=== PATIENT | female | born 1955 | race Hispanic/Latino ===

== ENCOUNTER 2020-12-29 20:55 | Inpatient (IN) | payer MEDICAID ==
[~2020-12-29] VITALS: Ht 154 cm; Wt 77.1 kg
[2020-12-29 21:38] LABS: MEAN CORPUSCULAR HEMOGLOBIN 26.9 pg (27.0-33.0); MEAN CORPUSCULAR HGB CONC 32.3 g/dL (32.0-36.0); MEAN CORPUSCULAR VOLUME 83.3 fL (79-99); MONOCYTES % (AUTO) 3.6 % (3.0-13.0); NEUTROPHILS % (AUTO) 87.9 % (40.0-77.0); PLATELET COUNT (AUTO) 264 K/uL (130-400); RED BLOOD CELL COUNT(AUTO) 4.68 MIL/uL (4.00-5.50); RED CELL DISTRIBUTION WIDTH 14.1 % (11.0-15.5); WHITE BLOOD COUNT (AUTO) 8.5 K/uL (4.8-10.8)
[2020-12-29 21:55] LABS: INR 0.94 (0.85-1.15); PROTHROMBIN TIME 10.3 SEC (9.6-11.6)
[2020-12-29 21:56] LABS: PARTIAL THROMBOPLASTIN TIME 25.6 SEC (26.3-35.5)
[2020-12-29 22:09] LABS: ALBUMIN 2.8 g/dL (3.5-5.0); BILIRUBIN,TOTAL 0.4 mg/dL (0.2-1.0); CREATININE 1.7 mg/dL (0.5-1.5); POTASSIUM 5.3 mmol/L (3.5-5.1); TOTAL PROTEIN, SERUM 8.1 g/dL (6.0-8.3)
[2020-12-29] MEDS ORDERED: INSULIN HUMULIN R 100 UNIT/ML 3ML ONE (22:09)
[2020-12-29 22:10] LABS: ABG BASE EXCESS -6.7 mmol/L (-2.0-3.0); ABG HCO3 17.1 mmol/L (21.0-28.0); ABG PCO2 30 mmHg (32-45)
[2020-12-29 22:17] LABS: B-TYPE NATRIURETIC PEPTIDE 54 pg/mL (0-100)
[2020-12-30] MEDS ORDERED: INSULIN HUMULIN R 100 UNIT/ML 3ML ONE ×5 (01:02→22:02)
[2020-12-30 02:04] LABS: APPEARANCE,URINE Cloudy (CLEAR); BILIRUBIN,URINE Negative (NEGATIVE); COLOR,URINE Yellow (YELLOW); GLUCOSE, URINE (UA) >=1000 mg/dL (NEGATIVE); KETONES,URINE 15 mg/dL (NEGATIVE); LEUKOCYTE ESTERASE ,URINE Small (NEGATIVE); NITRATE,URINE Negative (NEGATIVE); OCCULT BLOOD,URINE Trace (NEGATIVE); PROTEIN,URINE POS 1+ mg/dL (NEGATIVE); UROBILINOGEN,URINE 0.2 mg/dL (0.2-1.0)
[2020-12-30 02:24] LABS: BACTERIA,URINE Many /HPF (None Seen); RBC,URINE None Seen /HPF (0-1); YEAST,URINE BUDDING Moderate /HPF (None Seen)
[2020-12-30] MEDS ORDERED: LACTATED RINGERS 1000ML 1,000 ML IV SCH (02:45)
[2020-12-30] MEDS ORDERED: DEXTROSE 50%-WATER 50 ML DISP.SYRIN IV PRN (02:45)
[2020-12-30] MEDS ORDERED: GLUCAGON 1MG KIT 1 MG ML IM PRN (02:45)
[2020-12-30] MEDS: INSULIN R NPO SS2 SQ SCH ×3 (06:00→18:00)
[2020-12-30] MEDS: FAMOTIDINE 20MG TAB PO SCH ×2 (09:00→21:00)
[2020-12-30] MEDS ORDERED: FAMOTIDINE 20MG TAB ONE ×2 (10:22→22:02)
[2020-12-30] MEDS: SOLU-MEDROL 125MG VIAL IVP SCH ×2 (11:00→19:00)
[2020-12-30] MEDS: CEFTRIAXONE 1G VIAL IVP SCH (11:00)
[2020-12-30] MEDS: AZITHROMYCIN 500MG+NS 250ML 250 ML IV SCH (11:00)
[2020-12-30] MEDS ORDERED: LABETALOL 20MG SYG IV PRN (11:15)
[2020-12-30] MEDS ORDERED: ALBUTEROL INHALER 90MCG/INH IH PRN (11:15)
[2020-12-30] MEDS ORDERED: CLONIDINE HCL 0.1 MG TABLET PO PRN (11:15)
[2020-12-30] MEDS ORDERED: ONDANSETRON 4MG INJ IVP PRN (11:15)
[2020-12-30] MEDS ORDERED: ACETAMINOPHEN 650 MG SUPPOSITORY RC PRN (11:15)
[2020-12-30] MEDS: ASPIRIN 81MG CHEW TAB PO SCH (11:19)
[2020-12-30] MEDS: ZINC SULFATE 220 CAPSULE PO SCH (11:19)
[2020-12-30] MEDS: ASCORBIC ACID 500 MG TAB PO SCH (11:20)
[2020-12-30 11:28] LABS: ABG BASE EXCESS 0.1 mmol/L (-2.0-3.0); ABG HCO3 23.8 mmol/L (21.0-28.0); ABG OXYGEN SATURATION 93.2 % (95.0-99.0); ABG PCO2 36 mmHg (32-45)
[2020-12-30] MEDS: METOCLOPRAMIDE 5 MG TABLET PO SCH ×3 (11:30→21:00)
[2020-12-30] MEDS: INSULIN HUMULIN R 100 UNIT/ML 3ML SQ SCH ×3 (11:30→21:00)
[2020-12-30] MEDS: ENOXAPARIN SODIUM 40 MG/0.4 ML SYRINGE SQ SCH (12:00)
[2020-12-30 14:12] LABS: CREATININE 1.2 mg/dL (0.5-1.5); POTASSIUM 4.4 mmol/L (3.5-5.1)
[2020-12-30 15:02] LABS: CRP QUANTITATIVE 247.6 mg/L (0.00-9.0)
[2020-12-30] MEDS ORDERED: LACTATED RINGERS 1000ML 1,000 ML IV ONE (18:48)
[2020-12-30] MEDS: PHARMACY COMMUNICATION MISC SCH ×4 (19:45→22:45)
[2020-12-30] MEDS ORDERED: PHARMACY COMMUNICATION MISC SCH ×2 (20:45)
[2020-12-30] MEDS ORDERED: AZITHROMYCIN 500MG+NS 250ML 250 ML IV ONE (21:25)
[2020-12-30] MEDS ORDERED: ENOXAPARIN SODIUM 40 MG/0.4 ML SYRINGE SQ ONE (21:25)
[2020-12-30] MEDS ORDERED: SOLU-MEDROL 125MG VIAL ONE (21:25)
[2020-12-30] MEDS ORDERED: METOCLOPRAMIDE 5 MG TABLET ONE (21:26)
[2020-12-30] MEDS ORDERED: CEFTRIAXONE 1G VIAL ONE (21:26)
[2020-12-31] MEDS: SOLU-MEDROL 125MG VIAL IVP SCH ×4 (03:00→20:12)
[2020-12-31] MEDS: INSULIN R NPO SS2 SQ SCH ×5 (06:00→23:51)
[2020-12-31] MEDS: METOCLOPRAMIDE 5 MG TABLET PO SCH ×4 (07:30→20:16)
[2020-12-31] MEDS: INSULIN HUMULIN R 100 UNIT/ML 3ML SQ SCH ×4 (07:30→20:29)
[2020-12-31] MEDS ORDERED: INSULIN HUMULIN R 100 UNIT/ML 3ML ONE (08:58)
[2020-12-31] MEDS: ENOXAPARIN SODIUM 40 MG/0.4 ML SYRINGE SQ SCH (09:00)
[2020-12-31] MEDS: ZINC SULFATE 220 CAPSULE PO SCH (09:00)
[2020-12-31] MEDS: ASCORBIC ACID 500 MG TAB PO SCH (09:00)
[2020-12-31] MEDS: ASPIRIN 81MG CHEW TAB PO SCH (09:00)
[2020-12-31] MEDS: FAMOTIDINE 20MG TAB PO SCH ×2 (09:00→20:12)
[2020-12-31 09:27] LABS: BASOPHILS % (AUTO) 0.2 % (0.0-5.0); HEMATOCRIT 33.8 % (36-48); LYMPHOCYTES % (AUTO) 9.9 % (21.0-51.0); MEAN CORPUSCULAR HEMOGLOBIN 26.1 pg (27.0-33.0); MEAN CORPUSCULAR HGB CONC 31.1 g/dL (32.0-36.0); MEAN CORPUSCULAR VOLUME 84.1 fL (79-99); MONOCYTES % (AUTO) 0.7 % (3.0-13.0); NEUTROPHILS % (AUTO) 88.4 % (40.0-77.0); PLATELET COUNT (AUTO) 273 K/uL (130-400); RED BLOOD CELL COUNT(AUTO) 4.02 MIL/uL (4.00-5.50); RED CELL DISTRIBUTION WIDTH 14.1 % (11.0-15.5); WHITE BLOOD COUNT (AUTO) 6.2 K/uL (4.8-10.8)
[2020-12-31] MEDS ORDERED: ASCORBIC ACID 500 MG TAB ONE (09:42)
[2020-12-31] MEDS ORDERED: ZINC SULFATE 220 CAPSULE ONE (09:42)
[2020-12-31] MEDS ORDERED: FAMOTIDINE 20MG TAB ONE (09:42)
[2020-12-31] MEDS ORDERED: ASPIRIN 81MG CHEW TAB ONE (09:42)
[2020-12-31] MEDS ORDERED: SOLU-MEDROL 125MG VIAL ONE (09:43)
[2020-12-31 09:48] LABS: ALBUMIN 2.2 g/dL (3.5-5.0); BILIRUBIN,TOTAL 0.3 mg/dL (0.2-1.0); CREATININE 1.3 mg/dL (0.5-1.5); POTASSIUM 5.3 mmol/L (3.5-5.1); TOTAL PROTEIN, SERUM 6.9 g/dL (6.0-8.3)
[2020-12-31 09:56] LABS: CRP QUANTITATIVE 214.5 mg/L (0.00-9.0)
[2020-12-31] MEDS: CEFTRIAXONE 1G VIAL IVP SCH (11:00)
[2020-12-31] MEDS: AZITHROMYCIN 500MG+NS 250ML 250 ML IV SCH (11:00)
[2020-12-31 12:30] VITALS: BP 118/67
[2020-12-31] MEDS: PHARMACY COMMUNICATION MISC SCH (13:30)
[2020-12-31] MEDS ORDERED: COMPOUND IV REFRIGERATED 1 EACH IVSOLN MISC PRN (15:00)
[2020-12-31] MEDS ORDERED: REMDESIVIR (EUA) 520 200 MG in 0.9% NACL 250ML 250 ML IV ONE (15:00)
[2020-12-31 16:00] VITALS: BP 122/68
[2020-12-31 20:00] VITALS: BP 128/68
[2020-12-31] MEDS ORDERED: INSULIN GLARGINE 100 UNITS/ML 10 ML VIAL SQ SCH (21:00)
[2020-12-31] MEDS: ACETAMINOPHEN 325 MG TAB PO PRN (22:06)
[2021-01-01] VITALS: BP 117/61
[2021-01-01] MEDS: SOLU-MEDROL 125MG VIAL IVP SCH ×4 (03:19→21:46)
[2021-01-01 04:17] VITALS: BP 138/69
[2021-01-01 05:33] LABS: BASOPHILS % (AUTO) 0.1 % (0.0-5.0); HEMATOCRIT 31.6 % (36-48); LYMPHOCYTES % (AUTO) 9.8 % (21.0-51.0); MEAN CORPUSCULAR HEMOGLOBIN 26.4 pg (27.0-33.0); MEAN CORPUSCULAR HGB CONC 32.3 g/dL (32.0-36.0); MEAN CORPUSCULAR VOLUME 81.9 fL (79-99); MONOCYTES % (AUTO) 2.4 % (3.0-13.0); NEUTROPHILS % (AUTO) 86.9 % (40.0-77.0); PLATELET COUNT (AUTO) 306 K/uL (130-400); RED BLOOD CELL COUNT(AUTO) 3.86 MIL/uL (4.00-5.50); WHITE BLOOD COUNT (AUTO) 8.2 K/uL (4.8-10.8)
[2021-01-01] MEDS: INSULIN R NPO SS2 SQ SCH ×2 (05:50→13:04)
[2021-01-01 05:54] LABS: ALBUMIN 2.1 g/dL (3.5-5.0); BILIRUBIN,TOTAL 0.2 mg/dL (0.2-1.0); CREATININE 1.1 mg/dL (0.5-1.5); CRP QUANTITATIVE 147.6 mg/L (0.00-9.0); POTASSIUM 4.3 mmol/L (3.5-5.1); TOTAL PROTEIN, SERUM 6.4 g/dL (6.0-8.3)
[2021-01-01] MEDS: REMDESIVIR LABS MISC SCH (06:00)
[2021-01-01] MEDS: INSULIN HUMULIN R 100 UNIT/ML 3ML SQ SCH ×3 (07:30→21:48)
[2021-01-01 08:00] VITALS: BP 111/69
[2021-01-01] MEDS: METOCLOPRAMIDE 5 MG TABLET PO SCH ×4 (08:41→21:44)
[2021-01-01] MEDS: ASPIRIN 81MG CHEW TAB PO SCH (10:30)
[2021-01-01] MEDS: ZINC SULFATE 220 CAPSULE PO SCH (10:31)
[2021-01-01] MEDS: FAMOTIDINE 20MG TAB PO SCH ×2 (10:31→21:44)
[2021-01-01] MEDS: ASCORBIC ACID 500 MG TAB PO SCH (10:32)
[2021-01-01] MEDS: ENOXAPARIN SODIUM 40 MG/0.4 ML SYRINGE SQ SCH (10:35)
[2021-01-01] MEDS ORDERED: DEXAMETHASONE SOD PHOSPHATE 4 MG/ML 1ML VIAL ONE (10:39)
[2021-01-01] MEDS ORDERED: SOLU-MEDROL 40MG VIAL ONE ×2 (10:43→15:38)
[2021-01-01] MEDS: AZITHROMYCIN 500MG+NS 250ML 250 ML IV SCH ×2 (11:28→11:47)
[2021-01-01 12:00] VITALS: BP 124/77
[2021-01-01] MEDS: ZOSYN 3.375GM+NS 50ML 50 ML IV SCH ×2 (13:00→21:44)
[2021-01-01] MEDS: REMDESIVIR (EUA) 520 100 MG in 0.9% NACL 250ML 250 ML IV SCH (15:26)
[2021-01-01 18:00] VITALS: BP 116/68
[2021-01-01 20:00] VITALS: BP 137/77
[2021-01-01] MEDS: PHARMACY COMMUNICATION MISC SCH ×2 (21:30→23:31)
[2021-01-02] VITALS (7 sets, daily range): BP systolic 104–144; BP diastolic 56–93
[2021-01-02] MEDS: PHARMACY COMMUNICATION MISC SCH ×11 (01:08→12:27)
[2021-01-02] MEDS: ZOSYN 3.375GM+NS 50ML 50 ML IV SCH ×3 (05:54→21:33)
[2021-01-02] MEDS: SOLU-MEDROL 125MG VIAL IVP SCH ×4 (05:54→23:02)
[2021-01-02] MEDS: INSULIN R NPO SS2 SQ SCH ×3 (05:59→12:00)
[2021-01-02] MEDS: REMDESIVIR LABS MISC SCH (06:00)
[2021-01-02] MEDS: METOCLOPRAMIDE 5 MG TABLET PO SCH ×4 (07:00→21:33)
[2021-01-02 07:02] LABS: BASOPHILS % (AUTO) 0.1 % (0.0-5.0); HEMATOCRIT 33.7 % (36-48); LYMPHOCYTES % (AUTO) 5.3 % (21.0-51.0); MEAN CORPUSCULAR HEMOGLOBIN 26.1 pg (27.0-33.0); MEAN CORPUSCULAR VOLUME 81.4 fL (79-99); MONOCYTES % (AUTO) 2.2 % (3.0-13.0); NEUTROPHILS % (AUTO) 91.4 % (40.0-77.0); PLATELET COUNT (AUTO) 364 K/uL (130-400); RED BLOOD CELL COUNT(AUTO) 4.14 MIL/uL (4.00-5.50); RED CELL DISTRIBUTION WIDTH 14.1 % (11.0-15.5); WHITE BLOOD COUNT (AUTO) 13.4 K/uL (4.8-10.8)
[2021-01-02 07:13] LABS: ALBUMIN 2.4 g/dL (3.5-5.0); BILIRUBIN,TOTAL 0.2 mg/dL (0.2-1.0); CREATININE 1.2 mg/dL (0.5-1.5); CRP QUANTITATIVE 79.5 mg/L (0.00-9.0); TOTAL PROTEIN, SERUM 6.9 g/dL (6.0-8.3)
[2021-01-02] MEDS: ASCORBIC ACID 500 MG TAB PO SCH (09:00)
[2021-01-02] MEDS: ASPIRIN 81MG CHEW TAB PO SCH (09:00)
[2021-01-02] MEDS: FAMOTIDINE 20MG TAB PO SCH ×2 (09:00→21:33)
[2021-01-02] MEDS: ZINC SULFATE 220 CAPSULE PO SCH (09:00)
[2021-01-02] MEDS: ENOXAPARIN SODIUM 40 MG/0.4 ML SYRINGE SQ SCH (09:00)
[2021-01-02] MEDS ORDERED: METO5TAB2 PO (09:32)
[2021-01-02] MEDS ORDERED: PRAV20TA4 PO (09:32)
[2021-01-02] MEDS ORDERED: FAMO20TA8 PO (09:32)
[2021-01-02] MEDS ORDERED: LISI20TA24 PO (09:32)
[2021-01-02] MEDS ORDERED: TICA90TA PO (09:32)
[2021-01-02] MEDS ORDERED: METF-444 PO (09:32)
[2021-01-02] MEDS ORDERED: ALBU0.63 NEB (09:32)
[2021-01-02] MEDS ORDERED: INSU100I3 SQ (09:32)
[2021-01-02] MEDS ORDERED: GLIP10TA9 PO (09:32)
[2021-01-02] MEDS: INSULIN HUMULIN R 100 UNIT/ML 3ML SQ SCH ×4 (11:32→22:05)
[2021-01-02] MEDS: AZITHROMYCIN 500MG+NS 250ML 250 ML IV SCH (11:33)
[2021-01-02] MEDS: REMDESIVIR (EUA) 520 100 MG in 0.9% NACL 250ML 250 ML IV SCH (15:00)
[2021-01-02] MEDS ORDERED: PROPOFOL 1000 MG/100 ML 100 ML IV ONE (15:37)
[2021-01-02] MEDS ORDERED: INSULIN HUMULIN R 100 UNIT/ML 3ML IV SCH (23:00)
[2021-01-03] VITALS: BP 159/89
[2021-01-03] MEDS ORDERED: LORAZEPAM 2 MG/ML 1 ML VIAL IVP ONE
[2021-01-03] MEDS ORDERED: LORAZEPAM 2 MG/ML 1 ML VIAL ONE (00:14)
[2021-01-03] MEDS: SOLU-MEDROL 125MG VIAL IVP SCH (03:48)
[2021-01-03 04:00] VITALS: BP 135/85
[2021-01-03] MEDS: REMDESIVIR LABS MISC SCH (06:00)
[2021-01-03] MEDS: METOCLOPRAMIDE 5 MG TABLET PO SCH ×4 (06:32→21:42)
[2021-01-03] MEDS: ZOSYN 3.375GM+NS 50ML 50 ML IV SCH (06:32)
[2021-01-03] MEDS: INSULIN HUMULIN R 100 UNIT/ML 3ML SQ SCH ×4 (06:35→21:45)
[2021-01-03] MEDS: ASPIRIN 81MG CHEW TAB PO SCH (08:36)
[2021-01-03] MEDS: FAMOTIDINE 20MG TAB PO SCH ×2 (08:37→21:42)
[2021-01-03] MEDS: ENOXAPARIN SODIUM 40 MG/0.4 ML SYRINGE SQ SCH (08:37)
[2021-01-03] MEDS: OLANZAPINE 10MG/ML 1ML VIAL IM PRN (08:37)
[2021-01-03] MEDS: DEXAMETHASONE 4 MG TAB PO SCH (08:37)
[2021-01-03] MEDS: ZINC SULFATE 220 CAPSULE PO SCH (08:37)
[2021-01-03] MEDS: ASCORBIC ACID 500 MG TAB PO SCH (08:37)
[2021-01-03 08:54] VITALS: BP 155/107
[2021-01-03] MEDS: PHARMACY COMMUNICATION MISC SCH ×14 (09:45→23:45)
[2021-01-03] MEDS: AZITHROMYCIN 500MG+NS 250ML 250 ML IV SCH (11:00)
[2021-01-03 12:07] VITALS: BP 163/96
[2021-01-03 13:14] LABS: BASOPHILS % (AUTO) 0.2 % (0.0-5.0); HEMATOCRIT 39.4 % (36-48); LYMPHOCYTES % (AUTO) 5.2 % (21.0-51.0); MEAN CORPUSCULAR HEMOGLOBIN 26.4 pg (27.0-33.0); MEAN CORPUSCULAR HGB CONC 32.2 g/dL (32.0-36.0); MEAN CORPUSCULAR VOLUME 81.9 fL (79-99); MONOCYTES % (AUTO) 3.9 % (3.0-13.0); NEUTROPHILS % (AUTO) 88.5 % (40.0-77.0); PLATELET COUNT (AUTO) 478 K/uL (130-400); RED BLOOD CELL COUNT(AUTO) 4.81 MIL/uL (4.00-5.50); RED CELL DISTRIBUTION WIDTH 14.1 % (11.0-15.5)
[2021-01-03 13:22] LABS: CREATININE 1.1 mg/dL (0.5-1.5); POTASSIUM 4.2 mmol/L (3.5-5.1)
[2021-01-03 13:30] LABS: ALBUMIN 2.9 g/dL (3.5-5.0); BILIRUBIN,DIRECT 0.1 mg/dL (0.0-0.3); BILIRUBIN,TOTAL 0.4 mg/dL (0.2-1.0); TOTAL PROTEIN, SERUM 7.3 g/dL (6.0-8.3)
[2021-01-03] MEDS: REMDESIVIR (EUA) 520 100 MG in 0.9% NACL 250ML 250 ML IV SCH (15:00)
[2021-01-03 16:30] VITALS: BP 153/101
[2021-01-03 20:00] VITALS: BP 128/80
[2021-01-03] MEDS: INSULIN GLARGINE 100 UNITS/ML 10 ML VIAL SQ SCH (21:44)
[2021-01-03 21:57] LABS: BASOPHILS % (AUTO) 0.2 % (0.0-5.0); HEMATOCRIT 38.8 % (36-48); LYMPHOCYTES % (AUTO) 4.8 % (21.0-51.0); MEAN CORPUSCULAR HEMOGLOBIN 26.3 pg (27.0-33.0); MEAN CORPUSCULAR VOLUME 82.4 fL (79-99); MONOCYTES % (AUTO) 5.6 % (3.0-13.0); NEUTROPHILS % (AUTO) 87.5 % (40.0-77.0); PLATELET COUNT (AUTO) 488 K/uL (130-400); RED BLOOD CELL COUNT(AUTO) 4.71 MIL/uL (4.00-5.50); RED CELL DISTRIBUTION WIDTH 14.2 % (11.0-15.5); WHITE BLOOD COUNT (AUTO) 12.6 K/uL (4.8-10.8)
[2021-01-03 22:08] LABS: ABG BASE EXCESS -2.2 mmol/L (-2.0-3.0); ABG HCO3 17.9 mmol/L (21.0-28.0); ABG OXYGEN SATURATION 95.8 % (95.0-99.0); ABG PCO2 22 mmHg (32-45)
[2021-01-03 22:12] LABS: CARBON DIOXIDE 23 mmol/L (21-32); CHLORIDE 105 mmol/L (101-111); CREATININE 1.3 mg/dL (0.5-1.5); GLOMERULAR FILTR. RATE CALC 44 mL/min (>60); GLUCOSE,RANDOM 310 mg/dL (70-105); SODIUM SERUM 144 mmol/L (136-145); UREA NITROGEN, BLOOD 33 mg/dL (7-18)
[2021-01-03 22:16] LABS: AMMONIA < 10 umol/L (11-32)
[2021-01-04] VITALS: BP 120/76
[2021-01-04] MEDS ORDERED: 0.9% NACL 500ML IV.SOLN 250 ML IV SCH
[2021-01-04] MEDS ORDERED: 0.9% NACL 250ML 250 ML IV ONE (00:01)
[2021-01-04] MEDS: ZOSYN 3.375GM+NS 50ML 50 ML IV SCH ×3 (01:45→17:31)
[2021-01-04] MEDS ORDERED: ZOSYN 3.375GM+NS 50ML 50 ML IV ONE (01:50)
[2021-01-04 04:00] VITALS: BP 144/78
[2021-01-04] MEDS: REMDESIVIR LABS MISC SCH (06:00)
[2021-01-04 06:26] LABS: BASOPHILS % (AUTO) 0.3 % (0.0-5.0); HEMATOCRIT 40.8 % (36-48); LYMPHOCYTES % (AUTO) 6.6 % (21.0-51.0); MEAN CORPUSCULAR HEMOGLOBIN 26.1 pg (27.0-33.0); MEAN CORPUSCULAR HGB CONC 31.9 g/dL (32.0-36.0); MEAN CORPUSCULAR VOLUME 81.9 fL (79-99); MONOCYTES % (AUTO) 3.4 % (3.0-13.0); NEUTROPHILS % (AUTO) 88.1 % (40.0-77.0); PLATELET COUNT (AUTO) 493 K/uL (130-400); RED BLOOD CELL COUNT(AUTO) 4.98 MIL/uL (4.00-5.50); RED CELL DISTRIBUTION WIDTH 14.2 % (11.0-15.5); WHITE BLOOD COUNT (AUTO) 14.7 K/uL (4.8-10.8)
[2021-01-04] MEDS: INSULIN HUMULIN R 100 UNIT/ML 3ML SQ SCH ×4 (06:27→21:16)
[2021-01-04] MEDS: METOCLOPRAMIDE 5 MG TABLET PO SCH ×4 (06:32→21:14)
[2021-01-04 06:50] LABS: ALBUMIN 2.8 g/dL (3.5-5.0); BILIRUBIN,DIRECT 0.1 mg/dL (0.0-0.3); BILIRUBIN,TOTAL 0.4 mg/dL (0.2-1.0); CREATININE 1.2 mg/dL (0.5-1.5); POTASSIUM 3.2 mmol/L (3.5-5.1); TOTAL PROTEIN, SERUM 7.1 g/dL (6.0-8.3)
[2021-01-04] MEDS: FAMOTIDINE 20MG TAB PO SCH ×2 (07:46→21:14)
[2021-01-04] MEDS: ENOXAPARIN SODIUM 40 MG/0.4 ML SYRINGE SQ SCH (07:46)
[2021-01-04] MEDS: DEXAMETHASONE 4 MG TAB PO SCH (07:46)
[2021-01-04] MEDS: ZINC SULFATE 220 CAPSULE PO SCH (07:46)
[2021-01-04] MEDS: ASPIRIN 81MG CHEW TAB PO SCH (07:47)
[2021-01-04] MEDS: ASCORBIC ACID 500 MG TAB PO SCH (07:47)
[2021-01-04 09:00] VITALS: BP 135/84
[2021-01-04 11:54] VITALS: BP 107/66
[2021-01-04] MEDS: REMDESIVIR (EUA) 520 100 MG in 0.9% NACL 250ML 250 ML IV SCH (14:55)
[2021-01-04 15:48] VITALS: BP 133/93
[2021-01-04 20:00] VITALS: BP 145/77
[2021-01-04] MEDS: INSULIN GLARGINE 100 UNITS/ML 10 ML VIAL SQ SCH (21:17)
[2021-01-05] VITALS: BP 103/54
[2021-01-05] MEDS: ZOSYN 3.375GM+NS 50ML 50 ML IV SCH ×3 (03:15→17:02)
[2021-01-05 04:00] VITALS: BP 148/93
[2021-01-05 05:35] LABS: BASOPHILS % (AUTO) 0.3 % (0.0-5.0); EOSINOPHILS % (AUTO) 0.1 % (0.0-8.0); HEMATOCRIT 39.7 % (36-48); LYMPHOCYTES % (AUTO) 8.3 % (21.0-51.0); MEAN CORPUSCULAR HEMOGLOBIN 26.3 pg (27.0-33.0); MEAN CORPUSCULAR HGB CONC 31.7 g/dL (32.0-36.0); MEAN CORPUSCULAR VOLUME 82.7 fL (79-99); NEUTROPHILS % (AUTO) 85.3 % (40.0-77.0); PLATELET COUNT (AUTO) 417 K/uL (130-400); RED CELL DISTRIBUTION WIDTH 14.4 % (11.0-15.5); WHITE BLOOD COUNT (AUTO) 9.4 K/uL (4.8-10.8)
[2021-01-05 05:45] LABS: CREATININE 1.2 mg/dL (0.5-1.5)
[2021-01-05] MEDS: REMDESIVIR LABS MISC SCH (06:00)
[2021-01-05 06:17] LABS: POTASSIUM 2.9 mmol/L (3.5-5.1)
[2021-01-05] MEDS: INSULIN HUMULIN R 100 UNIT/ML 3ML SQ SCH ×4 (06:37→20:58)
[2021-01-05] MEDS: METOCLOPRAMIDE 5 MG TABLET PO SCH ×4 (07:06→20:57)
[2021-01-05] MEDS ORDERED: POTASSIUM BICARB/CIT AC 25 MEQ TABLET.EFF PO ONE (07:30)
[2021-01-05] MEDS: ASCORBIC ACID 500 MG TAB PO SCH (07:39)
[2021-01-05] MEDS: ENOXAPARIN SODIUM 40 MG/0.4 ML SYRINGE SQ SCH (07:39)
[2021-01-05] MEDS: FAMOTIDINE 20MG TAB PO SCH ×2 (07:40→20:57)
[2021-01-05] MEDS: ASPIRIN 81MG CHEW TAB PO SCH (07:40)
[2021-01-05] MEDS: ZINC SULFATE 220 CAPSULE PO SCH (07:40)
[2021-01-05] MEDS: DEXAMETHASONE 4 MG TAB PO SCH (07:40)
[2021-01-05 08:00] VITALS: BP 111/75
[2021-01-05] MEDS: OLANZAPINE 10MG/ML 1ML VIAL IM PRN (10:07)
[2021-01-05 12:11] VITALS: BP 148/85
[2021-01-05] MEDS ORDERED: LORAZEPAM 2 MG/ML 1 ML VIAL IVP ONE (13:30)
[2021-01-05] MEDS ORDERED: KCL 20 MEQ ERTAB PO SCH (14:00)
[2021-01-05 14:30] LABS: ALBUMIN 2.5 g/dL (3.5-5.0); BILIRUBIN,DIRECT 0.1 mg/dL (0.0-0.3); BILIRUBIN,TOTAL 0.4 mg/dL (0.2-1.0); TOTAL PROTEIN, SERUM 6.7 g/dL (6.0-8.3)
[2021-01-05] MEDS ORDERED: LORAZEPAM 2 MG/ML 1 ML VIAL ONE (16:28)
[2021-01-05 16:30] VITALS: BP 146/69
[2021-01-05 20:08] VITALS: BP 142/86
[2021-01-05] MEDS: INSULIN GLARGINE 100 UNITS/ML 10 ML VIAL SQ SCH (20:59)
[2021-01-06] VITALS (7 sets, daily range): BP systolic 105–147; BP diastolic 52–96
[2021-01-06] MEDS: ZOSYN 3.375GM+NS 50ML 50 ML IV SCH ×3 (01:01→17:54)
[2021-01-06] MEDS: INSULIN HUMULIN R 100 UNIT/ML 3ML SQ SCH ×4 (05:32→20:13)
[2021-01-06] MEDS: METOCLOPRAMIDE 5 MG TABLET PO SCH ×4 (06:27→20:10)
[2021-01-06] MEDS: ZINC SULFATE 220 CAPSULE PO SCH (09:34)
[2021-01-06] MEDS: ASPIRIN 81MG CHEW TAB PO SCH (09:34)
[2021-01-06] MEDS: DEXAMETHASONE 4 MG TAB PO SCH (09:34)
[2021-01-06] MEDS: ASCORBIC ACID 500 MG TAB PO SCH (09:34)
[2021-01-06] MEDS: FAMOTIDINE 20MG TAB PO SCH ×2 (09:37→20:10)
[2021-01-06] MEDS: ENOXAPARIN SODIUM 40 MG/0.4 ML SYRINGE SQ SCH (09:38)
[2021-01-06] MEDS: INSULIN GLARGINE 100 UNITS/ML 10 ML VIAL SQ SCH (20:14)
[2021-01-07] MEDS: ZOSYN 3.375GM+NS 50ML 50 ML IV SCH ×3 (02:34→17:12)
[2021-01-07 04:21] VITALS: BP 150/80
[2021-01-07] MEDS: METOCLOPRAMIDE 5 MG TABLET PO SCH ×4 (06:25→20:55)
[2021-01-07] MEDS: INSULIN HUMULIN R 100 UNIT/ML 3ML SQ SCH ×4 (06:26→20:16)
[2021-01-07 07:40] VITALS: BP 149/91
[2021-01-07] MEDS: FAMOTIDINE 20MG TAB PO SCH ×2 (08:39→20:55)
[2021-01-07] MEDS: DEXAMETHASONE 4 MG TAB PO SCH (08:39)
[2021-01-07] MEDS: ZINC SULFATE 220 CAPSULE PO SCH (08:39)
[2021-01-07] MEDS: ASCORBIC ACID 500 MG TAB PO SCH (08:40)
[2021-01-07] MEDS: ASPIRIN 81MG CHEW TAB PO SCH (08:40)
[2021-01-07] MEDS: ENOXAPARIN SODIUM 40 MG/0.4 ML SYRINGE SQ SCH (08:41)
[2021-01-07 12:17] VITALS: BP 122/72
[2021-01-07 16:17] VITALS: BP 104/85
[2021-01-07] MEDS: INSULIN GLARGINE 100 UNITS/ML 10 ML VIAL SQ SCH (20:15)
[2021-01-07 20:34] VITALS: BP 99/45
[2021-01-07 23:53] VITALS: BP 129/73
[2021-01-08] MEDS: ZOSYN 3.375GM+NS 50ML 50 ML IV SCH ×3 (01:08→18:04)
[2021-01-08 04:02] VITALS: BP 126/80
[2021-01-08] MEDS: METOCLOPRAMIDE 5 MG TABLET PO SCH ×4 (06:06→20:11)
[2021-01-08] MEDS: INSULIN HUMULIN R 100 UNIT/ML 3ML SQ SCH ×4 (06:26→20:15)
[2021-01-08 08:00] VITALS: BP 141/76
[2021-01-08] MEDS: DEXAMETHASONE 4 MG TAB PO SCH (09:44)
[2021-01-08] MEDS: ENOXAPARIN SODIUM 40 MG/0.4 ML SYRINGE SQ SCH (09:44)
[2021-01-08] MEDS: FAMOTIDINE 20MG TAB PO SCH ×2 (09:45→20:11)
[2021-01-08] MEDS: ASCORBIC ACID 500 MG TAB PO SCH (09:45)
[2021-01-08] MEDS: ASPIRIN 81MG CHEW TAB PO SCH (09:45)
[2021-01-08] MEDS: ZINC SULFATE 220 CAPSULE PO SCH (09:45)
[2021-01-08 11:59] VITALS: BP 131/79
[2021-01-08] MEDS: METFORMIN HCL 500 MG TABLET PO SCH (16:02)
[2021-01-08 16:04] VITALS: BP 148/97
[2021-01-08 20:12] VITALS: BP 122/73
[2021-01-08] MEDS: INSULIN GLARGINE 100 UNITS/ML 10 ML VIAL SQ SCH (20:13)
[2021-01-09] VITALS (7 sets, daily range): BP systolic 69–132; BP diastolic 65–83
[2021-01-09] MEDS: ZOSYN 3.375GM+NS 50ML 50 ML IV SCH ×3 (01:41→17:49)
[2021-01-09] MEDS: INSULIN HUMULIN R 100 UNIT/ML 3ML SQ SCH ×4 (06:07→21:55)
[2021-01-09] MEDS: METOCLOPRAMIDE 5 MG TABLET PO SCH ×4 (06:38→21:23)
[2021-01-09] MEDS: GLIPIZIDE 5 MG TABLET PO SCH (06:38)
[2021-01-09] MEDS: ZINC SULFATE 220 CAPSULE PO SCH (08:42)
[2021-01-09] MEDS: ASCORBIC ACID 500 MG TAB PO SCH (08:42)
[2021-01-09] MEDS: ASPIRIN 81MG CHEW TAB PO SCH (08:42)
[2021-01-09] MEDS: METFORMIN HCL 500 MG TABLET PO SCH ×2 (08:42→17:49)
[2021-01-09] MEDS: FAMOTIDINE 20MG TAB PO SCH ×2 (08:42→21:23)
[2021-01-09] MEDS: DEXAMETHASONE 4 MG TAB PO SCH (08:43)
[2021-01-09] MEDS: ENOXAPARIN SODIUM 40 MG/0.4 ML SYRINGE SQ SCH (08:43)
[2021-01-09] MEDS: INSULIN GLARGINE 100 UNITS/ML 10 ML VIAL SQ SCH (21:53)
[2021-01-10] MEDS: ZOSYN 3.375GM+NS 50ML 50 ML IV SCH ×3 (01:49→17:15)
[2021-01-10 03:52] VITALS: BP 137/80
[2021-01-10] MEDS: INSULIN HUMULIN R 100 UNIT/ML 3ML SQ SCH ×4 (06:11→21:34)
[2021-01-10] MEDS: METOCLOPRAMIDE 5 MG TABLET PO SCH ×4 (06:14→21:13)
[2021-01-10] MEDS: METFORMIN HCL 500 MG TABLET PO SCH ×2 (08:00→17:15)
[2021-01-10] MEDS: GLIPIZIDE 5 MG TABLET PO SCH (08:00)
[2021-01-10 08:21] VITALS: BP 120/67
[2021-01-10] MEDS: ZINC SULFATE 220 CAPSULE PO SCH (09:00)
[2021-01-10] MEDS: ASCORBIC ACID 500 MG TAB PO SCH (09:00)
[2021-01-10] MEDS: ASPIRIN 81MG CHEW TAB PO SCH (09:00)
[2021-01-10] MEDS: DEXAMETHASONE 4 MG TAB PO SCH (09:00)
[2021-01-10] MEDS: ENOXAPARIN SODIUM 40 MG/0.4 ML SYRINGE SQ SCH (09:00)
[2021-01-10] MEDS: FAMOTIDINE 20MG TAB PO SCH ×2 (09:00→21:13)
[2021-01-10 11:42] VITALS: BP 112/66
[2021-01-10] MEDS: ACETAMINOPHEN 325 MG TAB PO PRN (12:53)
[2021-01-10 16:53] VITALS: BP 113/69
[2021-01-10 20:00] VITALS: BP 117/72
[2021-01-10] MEDS: INSULIN GLARGINE 100 UNITS/ML 10 ML VIAL SQ SCH (21:34)
[2021-01-11] VITALS (7 sets, daily range): BP systolic 108–136; BP diastolic 60–82
[2021-01-11] MEDS: ZOSYN 3.375GM+NS 50ML 50 ML IV SCH ×3 (02:17→18:13)
[2021-01-11] MEDS: METOCLOPRAMIDE 5 MG TABLET PO SCH ×4 (05:53→21:02)
[2021-01-11] MEDS: INSULIN HUMULIN R 100 UNIT/ML 3ML SQ SCH ×4 (05:53→21:42)
[2021-01-11] MEDS: METFORMIN HCL 500 MG TABLET PO SCH ×2 (09:41→16:47)
[2021-01-11] MEDS: GLIPIZIDE 5 MG TABLET PO SCH (09:41)
[2021-01-11] MEDS: ZINC SULFATE 220 CAPSULE PO SCH (09:41)
[2021-01-11] MEDS: DEXAMETHASONE 4 MG TAB PO SCH (09:42)
[2021-01-11] MEDS: ASCORBIC ACID 500 MG TAB PO SCH (09:43)
[2021-01-11] MEDS: FAMOTIDINE 20MG TAB PO SCH ×2 (09:43→21:02)
[2021-01-11] MEDS: ASPIRIN 81MG CHEW TAB PO SCH (09:43)
[2021-01-11] MEDS: ENOXAPARIN SODIUM 40 MG/0.4 ML SYRINGE SQ SCH (09:44)
[2021-01-11] MEDS: INSULIN GLARGINE 100 UNITS/ML 10 ML VIAL SQ SCH (21:42)
[2021-01-12] MEDS: ZOSYN 3.375GM+NS 50ML 50 ML IV SCH ×3 (01:17→17:45)
[2021-01-12 03:24] VITALS: BP 108/66
[2021-01-12] MEDS: INSULIN HUMULIN R 100 UNIT/ML 3ML SQ SCH ×3 (05:57→16:10)
[2021-01-12] MEDS: METOCLOPRAMIDE 5 MG TABLET PO SCH ×3 (06:41→16:30)
[2021-01-12] MEDS: METFORMIN HCL 500 MG TABLET PO SCH (07:29)
[2021-01-12] MEDS: GLIPIZIDE 5 MG TABLET PO SCH (07:29)
[2021-01-12 08:08] VITALS: BP 123/74
[2021-01-12] MEDS: FAMOTIDINE 20MG TAB PO SCH (10:49)
[2021-01-12] MEDS: ASPIRIN 81MG CHEW TAB PO SCH (10:49)
[2021-01-12] MEDS: ZINC SULFATE 220 CAPSULE PO SCH (10:49)
[2021-01-12] MEDS: DEXAMETHASONE 4 MG TAB PO SCH (10:50)
[2021-01-12] MEDS: ASCORBIC ACID 500 MG TAB PO SCH (10:51)
[2021-01-12] MEDS: ENOXAPARIN SODIUM 40 MG/0.4 ML SYRINGE SQ SCH (10:51)
[2021-01-12 12:05] VITALS: BP 116/72
[2021-01-12 16:40] VITALS: BP 131/66
[2021-01-13] MEDS ORDERED: GLIPIZIDE 5 MG TABLET PO SCH (07:30)
== END 2021-01-12 18:01 | DRG 137 ==
LOC: EDH 20:55 → EDHIP 20:56 → 2DH 12-31 14:30
PROVIDERS: ADMIT Internal Medicine Critical Care Medicine; ATTEND Internal Medicine Critical Care Medicine
PROC: XW033E5 Introduction of Remdesivir Anti-infective into Peripheral Vein, Percutaneous Approach, New Technology Group 5 (ICD-10-PCS; principal; 2020-12-31)
DX: U07.1 COVID-19 (principal); J96.01 Acute respiratory failure with hypoxia; E11.65 Type 2 diabetes mellitus with hyperglycemia; N39.0 Urinary tract infection, site not specified; E66.01 Morbid (severe) obesity due to excess calories; J12.82 Pneumonia due to coronavirus disease 2019; E86.0 Dehydration; I10 Essential (primary) hypertension; B96.20 Unspecified Escherichia coli [E. coli] as the cause of diseases classified elsewhere; Z16.12 Extended spectrum beta lactamase (ESBL) resistance; Z66 Do not resuscitate; G93.40 Encephalopathy, unspecified; Z68.31 Body mass index [BMI] 31.0-31.9, adult; Z79.4 Long term (current) use of insulin; Z79.01 Long term (current) use of anticoagulants; Z78.1 Physical restraint status; Z74.01 Bed confinement status; I69.320 Aphasia following cerebral infarction; Z90.710 Acquired absence of both cervix and uterus
CPT/HCPCS: 36415; 36600; 70450; 71045; 80048; 80053; 80076; 81001; 82010; 82140; 82248; 82728; 82803; 82947; 82948; 83605; 83615; 83880; 83930; 84132; 84145; 84484; 85025; 85378; 85610; 85730; 86140; 87040; 87077; 87088; 87186; 87426; 92526; 92610; 93005; 97039; 99291; G0378; J0456; J0696; J1100; J1650; J1815; J2060; J2543; J2704; J2920; J2930; J3490; J7050; J7120; J8540